=== PATIENT | male | born 1955 | race Caucasian/White ===

== ENCOUNTER 2024-02-02 06:15 | Day surgery (SDC) | payer MEDICARE, OTHER ==
[~2024-02-02 06:15] MED LIST: Morphine 8 MG, EPINEPHrine 0.3 MG, Cefuroxime 750 MG, Ketorolac 30 MG, Sodium Chloride ... PRN; Sodium Chloride 0.9% 10 ML Syringe FLUSH PRN; Sodium Chloride 0.9% 10 ML Syringe FLUSH SCH
[2024-02-02] MEDS: Lactated Ringers 1,000 ML IV SCH (06:20)
[2024-02-02] MEDS ORDERED: Propofol 200 MG/20 ML SDV ONE ×2 (06:50→07:08)
[2024-02-02] MEDS ORDERED: Midazolam 1 MG/ML 2 ML SDV ONE (06:50)
[2024-02-02] MEDS ORDERED: fentaNYL 100 MCG/2 ML SDV ONE (06:50)
[2024-02-02] MEDS: oxyCODONE ER 10 MG TAB.ER PO ONE (06:51)
[2024-02-02] MEDS: Acetaminophen 325 MG Tab PO ONE (06:51)
[2024-02-02] MEDS: Pregabalin 25 MG Cap PO ONE (06:52)
[2024-02-02] MEDS ORDERED: Dexamethasone 4 MG/ML 5 ML MDV ONE (06:53)
[2024-02-02] MEDS ORDERED: dexmedeTOMIDine HCl 200 MCG/2 ML SDV ONE (06:53)
[2024-02-02] MEDS ORDERED: Ropivacaine 0.5% 5 MG/ML 30 ML SDV ONE (06:54)
[2024-02-02] MEDS ORDERED: EPINEPHrine 1 MG/ML SDV ONE (07:13)
[2024-02-02] MEDS ORDERED: ceFAZolin 2 GM Vial ONE (07:30)
[2024-02-02] MEDS ORDERED: HYDROmorphone 0.5 MG/0.5 ML Syringe IVPUSH PRN (07:32)
[2024-02-02] MEDS: Bupivacaine 0.25% 10 ML SDV ONE (07:38)
[2024-02-02] MEDS: Triamcinolone Acetonide 40 MG/ML 1 ML SDV ONE (07:38)
[2024-02-02] MEDS: Tranexamic Acid 1,000 MG/10 ML Vial ONE (08:00)
[2024-02-02] MEDS: Vancomycin 1 GM SDV ONE (08:00)
[2024-02-02] MEDS: fentaNYL 100 MCG/2 ML SDV IVPUSH PRN (08:53)
== END 2024-02-02 12:07 | disposition home or self-care (01) ==
LOC: JD.SDS 06:15
PROVIDERS: ATTEND Orthopaedic Surgery
DX: M17.11 Unilateral primary osteoarthritis, right knee (principal); M54.9 Dorsalgia, unspecified; E78.5 Hyperlipidemia, unspecified; G47.00 Insomnia, unspecified; I45.10 Unspecified right bundle-branch block; E55.9 Vitamin D deficiency, unspecified; F41.9 Anxiety disorder, unspecified; I34.0 Nonrheumatic mitral (valve) insufficiency; M10.9 Gout, unspecified; Z79.899 Other long term (current) drug therapy; Z88.3 Allergy status to other anti-infective agents; Z87.891 Personal history of nicotine dependence
CPT/HCPCS: 0055T; 20610; 27447; 73560; 97116; 97161; A9270; C1713; C1776; J0171; J0690; J1100; J2250; J2704; J2795; J3010; J3301; J3370; J3490; J7030; J7120; 01402; 64447

== ENCOUNTER 2024-04-15 19:29 | Emergency (ER) | payer MEDICARE, OTHER ==
[2024-04-15] MEDS: Ondansetron 4 MG Tab.DIS PO ONE (19:56)
[2024-04-15] MEDS: Morphine 4 MG/ML Syringe IM ONE ×2 (19:57→20:31)
[2024-04-15] MEDS: Sodium Chloride 0.9% 1,000 ML IV SCH (21:10)
[2024-04-15] MEDS: Sodium Chloride 0.9% 10 ML Syringe FLUSH PRN (21:17)
[2024-04-15] MEDS: Ketamine 200 MG/20 ML MDV IVPUSH ONE (21:17)
[2024-04-15] MEDS ORDERED: LORazepam 2 MG/ML SDV IVPUSH ONE (21:23)
== END 2024-04-15 22:30 | disposition home or self-care (01) ==
LOC: JD.ED 19:29
DX: S43.004A Unspecified dislocation of right shoulder joint, initial encounter (principal); E78.00 Pure hypercholesterolemia, unspecified; Z88.8 Allergy status to other drugs, medicaments and biological substances; Z79.899 Other long term (current) drug therapy; W01.0XXA Fall on same level from slipping, tripping and stumbling without subsequent striking against object, initial encounter
CPT/HCPCS: 23650; 73020; 73030; 96360; 96372; 99152; 99283; A9270; J2270; J3490; J7030; 23655